=== PATIENT | male | born 2000 | race Caucasian/White ===

== ENCOUNTER 2019-06-02 17:45 | Emergency (ER) | payer OTHER ==
[2019-06-02 17:58] VITALS: BMI 18.3
[2019-06-02] MEDS ORDERED: ONDANSETRON 4 MG/2 ML VIAL IVPUSH ONE (18:48)
[2019-06-02] MEDS ORDERED: SODIUM CHLORIDE 1,000 ML IV STA (18:48)
--- NOTE | 2019-06-02 18:55 | PDOC ---
Documentation entered by Faviola Oliveros SCRIBE, acting as scribe for Giana Lu MD. Giana Lu MD: This documentation has been prepared by the Arlin renee Brenda, SCRIBE, under my direction and personally reviewed by me in its entirety. I confirm that the documentation accurately reflects all work, treatment, procedures, and medical decision making performed by me. History of Present Illness - General Chief Complaint: Chest Pain Stated Complaint: CHEST PAIN, NAUSEA Time Seen by Provider: 06/02/19 18:35 History Source: Patient Exam Limitations: No Limitations - History of Present Illness Initial Comments: 06/02/19 18:48 The patient is a 19 year old male, with a significant PMH of childhood asthma who presents to the emergency department with midsternal chest pain since this morning. 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 He reports that his chest pain is constant and mid sternal and is aggravated upon inspiration and he aggravates a mid back pain with movement.Patient states that he has also had a pounding headache and weak muscles. The patient denies recent travel, sick contacts. Denies shortness of breath and dizziness. Denies fever, chills, diarrhea and constipation. Denies any urinary symptoms. Allergies: acetaminophen Social history: No reported hx of tobacco use, alcohol use or illicit drug use. Past History - Past Medical History Allergies/Adverse Reactions: Allergies Allergy/AdvReac Type Severity Reaction Status Date / Time acetaminophen [From Tylenol] Allergy ITCHING, Verified 06/02/19 17:49 DIFFICULTY BREATHING Home Medications: Ambulatory Orders Ibuprofen 600 mg PO TID PRN #20 tablet 06/02/19 COPD: No - Psycho Social/Smoking Cessation Hx Smoking History: Never smoked Have you smoked in the past 12 months: No Information on smoking cessation initiated: No Hx Alcohol Use: No Review of Systems - Review of Systems Able to Perform ROS?: Yes Comments:: 06/02/19 18:48 GENERAL/CONSTITUTIONAL: (+) weakness. No fever or chills. HEAD, EYES, EARS, NOSE AND THROAT: No change in vision. No ear pain or discharge. No sore throat. CARDIOVASCULAR:(+) Chest pain No shortness of breath. RESPIRATORY: No cough, wheezing, or hemoptysis. GASTROINTESTINAL: (+) nausea/vomiting. No diarrhea or constipation. GENITOURINARY: No dysuria, frequency, or change in urination. MUSCULOSKELETAL: No joint or muscle swelling or pain. No neck pain. SKIN: No rash NEUROLOGIC: No headache, vertigo, loss of consciousness, or change in strength/ sensation. ENDOCRINE: No increased thirst. No abnormal weight change. HEMATOLOGIC/LYMPHATIC: No anemia, easy bleeding, or history of blood clots. ALLERGIC/IMMUNOLOGIC: No hives or skin allergy. *Physical Exam - Vital Signs Last Vital Signs Temp Pulse Resp BP Pulse Ox 98.8 F 78 18 120/75 98 06/02/19 17:45 06/02/19 17:45 06/02/19 17:45 06/02/19 17:45 06/02/19 17:45 - Physical Exam GENERAL: Awake, alert, and fully oriented, in no acute distress. Appears anxious and uncomfortable HEAD: No signs of trauma EYES: PERRLA, EOMI, sclera anicteric, conjunctiva clear ENT: Auricles normal inspection, hearing grossly normal, nares patent, oropharynx clear without exudates. Dry mucosa NECK: Normal ROM, supple, no lymphadenopathy, JVD, or masses LUNGS: Breath sounds equal, clear to auscultation bilaterally. No wheezes, and no crackles HEART: Regular rate and rhythm, normal S1 and S2, no murmurs, rubs or gallops ABDOMEN: Soft, nontender, normoactive bowel sounds. No guarding, no rebound. No masses EXTREMITIES: Normal range of motion, no edema. No clubbing or cyanosis. No cords, erythema, or tenderness NEUROLOGICAL: Cranial nerves II through XII grossly intact. Normal speech, normal gait. Motor and sensation intact SKIN: Warm, dry, normal turgor, no rashes or lesions noted. ED Treatment Course - LABORATORY CBC & Chemistry Diagram: 06/02/19 19:15 06/02/19 19:15 Medical Decision Making - Medical Decision Making 06/02/19 19:00 Pt signed out to Dr. Tao at shift change. He presented with nausea, vomiting, cp. He is low risk for ACS, however, his EKG shows biphasic T wave in V2. Awaiting labs. Discharge - Discharge Information Problems reviewed: Yes Clinical Impression/Diagnosis: Viral syndrome, Atypical chest pain Condition: Stable Disposition: HOME - Additional Discharge Information Prescriptions: Ibuprofen 600 mg PO TID PRN #20 tablet PRN Reason: Pain - Follow up/Referral - Patient Discharge Instructions Patient Printed Discharge Instructions: DI for Atypical Chest Pain Additional Instructions: Rest; drink plenty of fluids Ibuprofen 600 mg up to 3 times a day as needed for pain; take with food Return if you have severe chest pain, vomiting or persistent high fever Follow-up with your doctor within the next week - Post Discharge Activity
[2019-06-02] MEDS ORDERED: ONDANSETRON 4 MG/2 ML VIAL ONE (19:03)
[2019-06-02 19:29] LABS: BASO % 0.9 % (0-2.0); EOS % 0.3 % (0-4.5); HEMOGLOBIN 17.3 GM/dl (11.7-16.9); LYMPH % 6.8 % (8-40); MCH 28.9 pg (25.7-33.7); MONO % 2.8 % (3.8-10.2); NEUT % 89.2 % (42.8-82.8); PLATELET COUNT 263 K/MM3 (134-434)
[2019-06-02 19:42] LABS: ALBUMIN 4.9 g/dl (3.4-5.0); BILIRUBIN,TOTAL 1.6 mg/dl (0.2-1); CALCIUM 9.7 mg/dl (8.5-10); CREATININE 0.9 mg/dl (0.55-1.3); TOT PROT 8.5 g/dl (6.4-8.2)
[2019-06-02 21:09] VITALS: BP 123/75; PULSE 84; TEMP 97.6
--- NOTE | 2019-06-02 21:55 | PDOC ---
*Physical Exam - Vital Signs Last Vital Signs Temp Pulse Resp BP Pulse Ox 97.6 F 84 18 123/75 98 06/02/19 21:08 06/02/19 21:08 06/02/19 21:08 06/02/19 21:08 06/02/19 21:08 ED Treatment Course - LABORATORY CBC & Chemistry Diagram: 06/02/19 19:15 06/02/19 19:15 - ADDITIONAL ORDERS Additional order review: Laboratory Results 06/02/19 06/02/19 06/02/19 19:15 19:15 19:03 Sodium 136 Potassium 4.0 Chloride 102 Carbon Dioxide 25 Anion Gap 9 BUN 11.0 Creatinine 0.9 Est GFR (CKD-EPI)AfAm 141.01 Est GFR (CKD-EPI)NonAf 121.66 Random Glucose 100 Calcium 9.7 Total Bilirubin 1.6 H AST 31 ALT 23 Alkaline Phosphatase 122 H Troponin I < 0.03 Total Protein 8.5 H Albumin 4.9 Lipase 108 06/02/19 19:15 RBC 6.00 H MCV 85.0 MCHC 34.0 RDW 12.0 MPV 9.0 Neutrophils % 89.2 H Lymphocytes % 6.8 L Monocytes % 2.8 L Eosinophils % 0.3 Basophils % 0.9 - Medications Given in the ED: ED Medications Discontinued Medications Generic Name Dose Route Start Last Admin Trade Name Freq PRN Reason Stop Dose Admin Sodium Chloride 1,000 mls @ 1,000 mls/hr 06/02/19 18:48 06/02/19 19:19 Normal Saline - IV 06/02/19 19:47 1,000 mls/hr ASDIR STA Administration Ondansetron HCl 4 mg 06/02/19 18:48 06/02/19 19:20 Zofran Injection IVPUSH 06/02/19 18:49 4 mg ONCE ONE Administration ED Progress Note - Progress Note Progress Note: Care of this patient received from Dr. Lu Laboratory evaluation essentially normal (hematocrit/hemoglobin mildly elevated at 17 and 51, respectively. This may be related to hemoconcentration but BUN/ Cre ratio is normal) troponin is not elevated Patient states that his pain has largely resolved since presentation. Clinical presentation most consistent with viral syndrome with history of atypical chest pain. Patient frequently takes ibuprofen as needed for pain; he requested that prescription be sent for this medication. Ibuprofen 600 mg to be taken up to 3 times a day as needed for pain/fever ( taken with food) prescription sent to pharmacy. Patient should follow-up with his doctor within the next week return to the ER if he has persistent severe pain, vomiting, high fever or shortness of breath Discharge - Discharge Information Problems reviewed: Yes Clinical Impression/Diagnosis: Viral syndrome, Atypical chest pain Condition: Stable Disposition: HOME - Additional Discharge Information Prescriptions: Ibuprofen 600 mg PO TID PRN #20 tablet PRN Reason: Pain - Follow up/Referral - Patient Discharge Instructions Patient Printed Discharge Instructions: DI for Atypical Chest Pain Additional Instructions: Rest; drink plenty of fluids Ibuprofen 600 mg up to 3 times a day as needed for pain; take with food Return if you have severe chest pain, vomiting or persistent high fever Follow-up with your doctor within the next week - Post Discharge Activity
--- NOTE | 2019-06-03 13:16 | EKG ---
Test Reason : Blood Pressure : / mmHG Vent. Rate : 072 BPM Atrial Rate : 072 BPM P-R Int : 138 ms QRS Dur : 084 ms QT Int : 336 ms P-R-T Axes : 070 072 043 degrees QTc Int : 367 ms NORMAL SINUS RHYTHM ST ELEVATION, CONSIDER EARLY REPOLARIZATION, PERICARDITIS, OR INJURY CLINICAL CORRELATION IS RECOMMENDED NO PREVIOUS ECGS AVAILABLE Confirmed by RHONDA LEW MD ([id number]) on 06/03/2019 1:15:56 PM Referred By: MD HURLEY Confirmed By:RHONDA LEW MD
== END 2019-06-02 22:05 | disposition home or self-care (01) ==
LOC: FER 17:45
PROC: 3E033GC Introduction of Other Therapeutic Substance into Peripheral Vein, Percutaneous Approach (ICD-10-PCS; principal; 2019-06-02)
DX: B34.9 Viral infection, unspecified (principal); R07.89 Other chest pain; J45.909 Unspecified asthma, uncomplicated; Z88.8 Allergy status to other drugs, medicaments and biological substances
CPT/HCPCS: 36415; 71046-TC-FY; 80053; 83690; 84484; 85025; 93005; 99285-25; J7030